=== PATIENT | female | born 1930 | race Caucasian/White ===

== ENCOUNTER 2016-08-19 18:39 | Emergency (ER) | payer OTHER ==
[~2016-08-19] VITALS: Ht 149.9 cm; Wt 56.7 kg
[~2016-08-19 18:39] MED LIST: ASPI81TA2 PO; LISI-600 PO; LOVA20TA2 PO; RABE20TA5 PO; RANI150T8 PO; TOPXL100 PO
[2016-08-19 18:43] VITALS: BP 159/63; PULSE 89; RESP 17; TEMP 98.4; O2SAT 96
[2016-08-19] MEDS ORDERED: NIFE-2 PO (19:41)
[2016-08-19] MEDS ORDERED: MORPHINE 2 MG/ML INJ. SYRINGE IVP ONE ×2 (20:00→21:00)
[2016-08-19 20:14] LABS: BASOPHILS # (AUTO) 0.1 K/uL (0.0-0.2); BASOPHILS % (AUTO) 1.1 % (0.0-2.0); EOSINOPHILS # (AUTO) 0.4 K/uL (0.0-0.4); EOSINOPHILS % (AUTO) 4.7 % (0.0-4.0); HEMATOCRIT 36.4 % (36-48); HEMOGLOBIN 12.4 g/dL (12.0-16.0); LYMPHOCYTES % (AUTO) 24.4 % (20.5-51.5); MEAN CORPUSCULAR HEMOGLOBIN 33 pg (27-31); MEAN CORPUSCULAR HGB CONC 34 % (32-36); MEAN CORPUSCULAR VOLUME 98 fL (79.0-98.0); MONOCYTES % (AUTO) 12.4 % (1.7-9.3); NEUTROPHILS # (AUTO) 4.9 K/uL (1.8-7.7); NEUTROPHILS % (AUTO) 57.4 % (40.0-70.0); PLATELET COUNT (AUTO) 172 K/uL (130-430); RED BLOOD CELL COUNT(AUTO) 3.71 MIL/uL (4.2-6.2); RED CELL DISTRIBUTION WIDTH 12.8 % (9.0-15.0); WHITE BLOOD COUNT (AUTO) 8.4 K/uL (4.8-10.8)
[2016-08-19 20:26] LABS: INR 0.9 (0.8-1.2); PROTHROMBIN TIME 9.9 SECS (9.5-12.5)
[2016-08-19 20:31] LABS: ALANINE AMINOTRANSFERASE 25 U/L (12-78); ALBUMIN 4.2 g/dL (3.4-4.8); ANION GAP 7 (5-15); ASPARTATE AMINOTRANSFERASE 17 U/L (10-37); CALCIUM 9.5 mg/dL (8.4-11.0); CHLORIDE 104 mmol/L (98-107); CREATININE 2.11 mg/dL (0.55-1.30); GLUCOSE 112 mg/dL (70-99); POTASSIUM 4.8 mmol/L (3.5-5.1); SODIUM SERUM 137 mmol/L (136-145); TOTAL BILIRUBIN 0.4 mg/dL (0.0-1.0); TOTAL PROTEIN, SERUM 7.9 g/dL (6.4-8.3); UREA NITROGEN, BLOOD 36 mg/dL (8-21)
[2016-08-19 20:48] LABS: BILIRUBIN,URINE NEGATIVE (NEGATIVE); BLOOD, URINE 3+ (NEGATIVE); CLARITY/URINE HAZY (CLEAR); GLUCOSE,URINE NEGATIVE (NEGATIVE); KETONES,URINE NEGATIVE (NEGATIVE); LEUKOCYTE ESTERASE ,URINE 1+ (NEGATIVE); NITRITE, URINE POSITIVE (NEGATIVE); PROTEIN URINE TRACE (NEGATIVE); UROBILINOGEN,URINE 0.2 (0.2-1.0)
[2016-08-19] MEDS ORDERED: ONDANSETRON HCL 4 MG/2 ML VIAL IVP ONE (21:00)
[2016-08-19 21:06] LABS: BACTERIA,URINE FEW /HPF (None Seen); RBC,URINE >100 /HPF (0-3); WBC,URINE 20-50 /HPF (0-3)
[2016-08-19 21:07] LABS: COLOR,URINE YELLOW (YELLOW); MUCUS,URINE None Seen /LPF (None Seen)
[2016-08-19] MEDS ORDERED: LEVOFLOXACIN 500 MG/D5W 100 ML IV ONE (21:15)
[2016-08-19 22:40] VITALS: BP 158/61; PULSE 92; RESP 17; TEMP 98.4; O2SAT 98
== END 2016-08-19 22:40 | disposition home or self-care (01) ==
LOC: SED 18:39
DX: N39.0 Urinary tract infection, site not specified (principal); R31.9 Hematuria, unspecified; K21.9 Gastro-esophageal reflux disease without esophagitis; I10 Essential (primary) hypertension; Z88.0 Allergy status to penicillin; Z88.5 Allergy status to narcotic agent
CPT/HCPCS: 36415; 80053; 81000; 85025; 85610; 85730; 87086; 96365; 96375; 99284; J1956; J2270; J2405

== ENCOUNTER 2017-03-12 08:22 | Emergency (ER) | payer OTHER ==
[~2017-03-12] VITALS: Ht 149.9 cm; Wt 56.2 kg
[~2017-03-12 08:22] MED LIST changes: -ASPI81TA2 PO; -LOVA20TA2 PO; +NIFE-2 PO; -RABE20TA5 PO
[2017-03-12 08:30] VITALS: BP_SYST 160
[2017-03-12] MEDS ORDERED: ACETAMINOPHEN 500 MG TABLET PO ONE (08:45)
[2017-03-12 09:49] VITALS: BP_SYST 142
== END 2017-03-12 09:49 | disposition home or self-care (01) ==
LOC: SED 08:22
DX: M25.551 Pain in right hip (principal); K21.9 Gastro-esophageal reflux disease without esophagitis; I10 Essential (primary) hypertension; Z88.5 Allergy status to narcotic agent; Z88.0 Allergy status to penicillin; Z88.1 Allergy status to other antibiotic agents; W10.8XXA Fall (on) (from) other stairs and steps, initial encounter; Y93.89 Activity, other specified; Y92.89 Other specified places as the place of occurrence of the external cause; Y99.8 Other external cause status
CPT/HCPCS: 72170-TC; 73502; 99284

== ENCOUNTER 2019-09-02 18:21 | Inpatient (IN) | payer OTHER ==
[~2019-09-02] VITALS: Ht 149.9 cm; Wt 55.8 kg
[2019-09-02 18:29] VITALS: BP_SYST 138
[2019-09-02 19:24] LABS: BASOPHILS % (AUTO) 0.6 % (0.0-2.0); EOSINOPHILS # (AUTO) 0.1 K/uL (0.0-0.4); EOSINOPHILS % (AUTO) 2.4 % (0.0-4.0); HEMATOCRIT 35.1 % (36-48); HEMOGLOBIN 11.8 g/dL (12.0-16.0); LYMPHOCYTES # (AUTO) 1.2 K/uL (1.0-5.5); LYMPHOCYTES % (AUTO) 19.5 % (20.5-51.5); MEAN CORPUSCULAR HEMOGLOBIN 34 pg (27-31); MEAN CORPUSCULAR HGB CONC 34 % (32-36); MEAN CORPUSCULAR VOLUME 102 fL (79.0-98.0); MONOCYTES # (AUTO) 0.6 K/uL (0.0-1.0); MONOCYTES % (AUTO) 9.8 % (1.7-9.3); NEUTROPHILS # (AUTO) 4.3 K/uL (1.8-7.7); NEUTROPHILS % (AUTO) 67.7 % (40.0-70.0); PLATELET COUNT (AUTO) 198 K/uL (130-430); RED BLOOD CELL COUNT(AUTO) 3.46 MIL/uL (4.2-6.2); RED CELL DISTRIBUTION WIDTH 12.8 % (9.0-15.0); WHITE BLOOD COUNT (AUTO) 6.3 K/uL (4.8-10.8)
[2019-09-02 19:29] LABS: ANION GAP 8 (5-15); CALCIUM 8.7 mg/dL (8.4-11.0); CHLORIDE 100 mmol/L (98-107); CREATININE 3.19 mg/dL (0.55-1.30); GLUCOSE 153 mg/dL (70-99); POTASSIUM 4.3 mmol/L (3.5-5.1); SODIUM SERUM 132 mmol/L (136-145); UREA NITROGEN, BLOOD 47 mg/dL (8-21)
[2019-09-02 19:35] LABS: ALANINE AMINOTRANSFERASE 21 U/L (12-78); ALBUMIN 3.8 g/dL (3.4-4.8); ASPARTATE AMINOTRANSFERASE 18 U/L (10-37); TOTAL BILIRUBIN 0.4 mg/dL (0.0-1.0)
[2019-09-02] MEDS ORDERED: NACL 0.9% 1,000 ML IV ONE (20:00)
[2019-09-02] MEDS ORDERED: MORPHINE 4 MG/ML INJ. SYRINGE IVP ONE (21:30)
[2019-09-02] MEDS ORDERED: HYDR25TA4 PO (22:29)
[2019-09-02] MEDS ORDERED: METO-442 PO (22:29)
[2019-09-02] MEDS ORDERED: RANI300T4 PO (22:29)
[2019-09-02] MEDS ORDERED: CELE200C PO (22:29)
[2019-09-02] MEDS ORDERED: TELM80TA2 PO (22:29)
[2019-09-02 23:07] VITALS: BP_SYST 150
[2019-09-03] MEDS ORDERED: TEMAZEPAM 7.5 MG CAPSULE PO ONE (00:45)
[2019-09-03] MEDS ORDERED: ACETAMINOPHEN 325 MG TABLET PO PRN (02:00)
[2019-09-03 03:02] LABS: ALANINE AMINOTRANSFERASE 15 U/L (12-78); ALBUMIN 3.1 g/dL (3.4-4.8); ANION GAP 8 (5-15); ASPARTATE AMINOTRANSFERASE 16 U/L (10-37); CALCIUM 8.1 mg/dL (8.4-11.0); CHLORIDE 105 mmol/L (98-107); CREATININE 2.69 mg/dL (0.55-1.30); GLUCOSE 127 mg/dL (70-99); SODIUM SERUM 137 mmol/L (136-145); THYROID STIMULATING HORMONE 8.21 uIu/mL (0.36-3.74); TOTAL BILIRUBIN 0.4 mg/dL (0.0-1.0); UREA NITROGEN, BLOOD 40 mg/dL (8-21)
[2019-09-03 06:32] LABS: BASOPHILS % (AUTO) 0.6 % (0.0-2.0); EOSINOPHILS # (AUTO) 0.1 K/uL (0.0-0.4); HEMATOCRIT 30.8 % (36-48); HEMOGLOBIN 10.2 g/dL (12.0-16.0); LYMPHOCYTES # (AUTO) 1.3 K/uL (1.0-5.5); LYMPHOCYTES % (AUTO) 20.7 % (20.5-51.5); MEAN CORPUSCULAR HEMOGLOBIN 34 pg (27-31); MEAN CORPUSCULAR HGB CONC 33 % (32-36); MEAN CORPUSCULAR VOLUME 102 fL (79.0-98.0); MONOCYTES # (AUTO) 0.7 K/uL (0.0-1.0); MONOCYTES % (AUTO) 11.2 % (1.7-9.3); NEUTROPHILS % (AUTO) 65.5 % (40.0-70.0); PLATELET COUNT (AUTO) 170 K/uL (130-430); RED BLOOD CELL COUNT(AUTO) 3.03 MIL/uL (4.2-6.2); RED CELL DISTRIBUTION WIDTH 13.1 % (9.0-15.0); WHITE BLOOD COUNT (AUTO) 6.1 K/uL (4.8-10.8)
[2019-09-03] MEDS: NACL 0.9% 1,000 ML IV SCH ×2 (06:32→15:07)
[2019-09-03 08:00] VITALS: BP_SYST 124
[2019-09-03] MEDS ORDERED: METOPROLOL SUCCINATE 50 MG TAB.SR.24H (TOPROL XL) PO ONE (12:15)
[2019-09-03 12:25] VITALS: BP_SYST 130
[2019-09-03] MEDS ORDERED: FAMOTIDINE 20 MG TABLET PO ONE (12:30)
[2019-09-03] MEDS ORDERED: LEVOTHYROXINE SODIUM 0.05 MG TABLET PO ONE (13:30)
[2019-09-03] MEDS ORDERED: NACL 0.9% 1,000 ML IV ONE (15:05)
[2019-09-03 16:20] VITALS: BP_SYST 117
[2019-09-03 20:00] VITALS: BP_SYST 145
[2019-09-03] MEDS: METOPROLOL SUCCINATE 50 MG TAB.SR.24H (TOPROL XL) PO SCH (20:49)
[2019-09-04 00:27] VITALS: BP_SYST 134
[2019-09-04 06:21] LABS: ANION GAP 7 (5-15); CALCIUM 8.5 mg/dL (8.4-11.0); CHLORIDE 108 mmol/L (98-107); CREATININE 2.02 mg/dL (0.55-1.30); GLUCOSE 89 mg/dL (70-99); POTASSIUM 4.7 mmol/L (3.5-5.1); SODIUM SERUM 139 mmol/L (136-145); UREA NITROGEN, BLOOD 30 mg/dL (8-21)
[2019-09-04] MEDS ORDERED: NACL 0.9% 1,000 ML IV ONE (06:45)
[2019-09-04 06:53] LABS: BASOPHILS # (AUTO) 0.1 K/uL (0.0-0.2); EOSINOPHILS # (AUTO) 0.2 K/uL (0.0-0.4); EOSINOPHILS % (AUTO) 4.2 % (0.0-4.0); HEMATOCRIT 30.1 % (36-48); LYMPHOCYTES # (AUTO) 1.5 K/uL (1.0-5.5); LYMPHOCYTES % (AUTO) 27.2 % (20.5-51.5); MEAN CORPUSCULAR HEMOGLOBIN 34 pg (27-31); MEAN CORPUSCULAR HGB CONC 33 % (32-36); MEAN CORPUSCULAR VOLUME 102 fL (79.0-98.0); MONOCYTES # (AUTO) 0.6 K/uL (0.0-1.0); MONOCYTES % (AUTO) 12.1 % (1.7-9.3); NEUTROPHILS % (AUTO) 55.5 % (40.0-70.0); PLATELET COUNT (AUTO) 168 K/uL (130-430); RED BLOOD CELL COUNT(AUTO) 2.94 MIL/uL (4.2-6.2); RED CELL DISTRIBUTION WIDTH 12.9 % (9.0-15.0); WHITE BLOOD COUNT (AUTO) 5.4 K/uL (4.8-10.8)
[2019-09-04] MEDS ORDERED: LEVOTHYROXINE SODIUM 0.05 MG TABLET PO SCH (07:00)
[2019-09-04 08:00] VITALS: BP_SYST 139
[2019-09-04] MEDS ORDERED: FAMOTIDINE 20 MG TABLET PO SCH (09:00)
[2019-09-04] MEDS: METOPROLOL SUCCINATE 50 MG TAB.SR.24H (TOPROL XL) PO SCH (09:02)
[2019-09-04 10:09] VITALS: BP_SYST 139
[2019-09-04] MEDS ORDERED: SYN50 PO (10:42)
[2019-09-04] MEDS ORDERED: METO-542 PO (10:42)
== END 2019-09-04 11:10 | disposition home or self-care (01) | DRG 205 ==
LOC: SED 18:21 → STU 22:17
PROVIDERS: ADMIT Internal Medicine Hospice and Palliative Medicine; ATTEND Internal Medicine Hospice and Palliative Medicine
DX: M94.0 Chondrocostal junction syndrome [Tietze] (principal); N18.6 End stage renal disease; I12.0 Hypertensive chronic kidney disease with stage 5 chronic kidney disease or end stage renal disease; N17.9 Acute kidney failure, unspecified; R00.0 Tachycardia, unspecified; D64.9 Anemia, unspecified; E89.0 Postprocedural hypothyroidism; K21.9 Gastro-esophageal reflux disease without esophagitis; E86.0 Dehydration; Z88.5 Allergy status to narcotic agent; Z88.1 Allergy status to other antibiotic agents; Z88.0 Allergy status to penicillin; Z79.899 Other long term (current) drug therapy
CPT/HCPCS: 36415; 71045; 71250-TC; 80048; 80053; 82550-TC; 83880; 84443-TC; 84484; 85025; 85379; 93005; 93306; 96360; 99285; G0378; J2270; J7030

== ENCOUNTER 2020-03-04 04:36 | Observation (INO) | payer OTHER ==
[~2020-03-04] VITALS: Ht 149.9 cm; Wt 54.4 kg
[2020-03-04] VITALS (10 sets, daily range): BP systolic 94–219
[~2020-03-04 04:36] MED LIST changes: +CELE200C PO; -LISI-600 PO; +METO-542 PO; -NIFE-2 PO; -RANI150T8 PO; +RANI300T4 PO; +SYN50 PO; -TOPXL100 PO
[2020-03-04] MEDS ORDERED: GABA-529 PO (05:07)
[2020-03-04] MEDS ORDERED: HYDR12.55 PO (05:08)
[2020-03-04] MEDS ORDERED: MECL12.584 PO (05:10)
[2020-03-04] MEDS ORDERED: MIRT7.5T11 PO (05:11)
[2020-03-04] MEDS ORDERED: OMEP40CA33 PO (05:11)
[2020-03-04] MEDS ORDERED: SYN50 PO (05:12)
[2020-03-04] MEDS ORDERED: ASPI-1153 PO (05:13)
[2020-03-04] MEDS ORDERED: CYAN100010 PO (05:13)
[2020-03-04] MEDS ORDERED: OMEG-82 PO (05:14)
[2020-03-04] MEDS ORDERED: ENALAPRILAT DIHYDRATE 1.25 MG/ML VIAL IVP ONE (05:15)
[2020-03-04] MEDS ORDERED: hydrALAZINE HCL 20 MG/ML VIAL IVP ONE (05:15)
[2020-03-04 05:36] LABS: BASOPHILS # (AUTO) 0.1 K/uL (0.0-0.2); BASOPHILS % (AUTO) 1.1 % (0.0-2.0); EOSINOPHILS # (AUTO) 0.1 K/uL (0.0-0.4); EOSINOPHILS % (AUTO) 2.5 % (0.0-4.0); HEMATOCRIT 36.2 % (36-48); HEMOGLOBIN 12.2 g/dL (12.0-16.0); LYMPHOCYTES # (AUTO) 1.4 K/uL (1.0-5.5); LYMPHOCYTES % (AUTO) 28.2 % (20.5-51.5); MEAN CORPUSCULAR HEMOGLOBIN 32 pg (27-31); MEAN CORPUSCULAR HGB CONC 34 % (32-36); MEAN CORPUSCULAR VOLUME 96 fL (79.0-98.0); MONOCYTES # (AUTO) 0.5 K/uL (0.0-1.0); MONOCYTES % (AUTO) 9.2 % (1.7-9.3); NEUTROPHILS # (AUTO) 2.9 K/uL (1.8-7.7); PLATELET COUNT (AUTO) 179 K/uL (130-430); RED BLOOD CELL COUNT(AUTO) 3.77 MIL/uL (4.2-6.2); RED CELL DISTRIBUTION WIDTH 13.8 % (9.0-15.0); WHITE BLOOD COUNT (AUTO) 4.9 K/uL (4.8-10.8)
[2020-03-04 05:43] LABS: ANION GAP 7 (5-15); CALCIUM 9.4 mg/dL (8.4-11.0); CHLORIDE 103 mmol/L (98-107); CREATININE 1.78 mg/dL (0.55-1.30); GLUCOSE 114 mg/dL (70-99); POTASSIUM 4.2 mmol/L (3.5-5.1); SODIUM SERUM 136 mmol/L (136-145); UREA NITROGEN, BLOOD 28 mg/dL (8-21)
[2020-03-04 05:49] LABS: ALANINE AMINOTRANSFERASE 15 U/L (12-78); ALBUMIN 3.5 g/dL (3.4-4.8); ASPARTATE AMINOTRANSFERASE 19 U/L (10-37); TOTAL BILIRUBIN 0.5 mg/dL (0.0-1.0)
[2020-03-04] MEDS ORDERED: NITROGLYCERIN 1 INCH (GM) OINT. TP ONE (06:15)
[2020-03-04] MEDS ORDERED: LOSARTAN POTASSIUM 50 MG TABLET (COZAAR) PO ONE (11:15)
[2020-03-04] MEDS: D5/0.45 NS 1,000 ML IV SCH ×3 (11:58→20:35)
[2020-03-04] MEDS ORDERED: ACETAMINOPHEN 325 MG TABLET PO PRN (12:00)
[2020-03-04] MEDS ORDERED: MECLIZINE HCL 25 MG TABLET (ANITVERT) PO PRN (12:00)
[2020-03-04] MEDS ORDERED: ONDANSETRON HCL 4 MG/2 ML VIAL IVP PRN (12:00)
[2020-03-04] MEDS: LORazepam 2 MG/ML VIAL IVP PRN ×2 (14:07→20:50)
[2020-03-04] MEDS: GABAPENTIN 100 MG CAPSULE PO SCH ×2 (14:07→20:33)
[2020-03-04] MEDS ORDERED: ASPIRIN 81 MG TAB.CHEW ONE (14:18)
[2020-03-04] MEDS: OMEGA-3/DHA/EPA/FISH OIL 1 GM CAPSULE PO SCH (20:33)
[2020-03-04] MEDS: METOPROLOL SUCCINATE 50 MG TAB.SR.24H (TOPROL XL) PO SCH (20:34)
[2020-03-04] MEDS ORDERED: MIRTAZAPINE 15 MG TABLET PO SCH (21:00)
[2020-03-04] MEDS ORDERED: NACL 0.9% 250 ML IV SCH (23:15)
[2020-03-05 01:10] VITALS: BP_SYST 113
[2020-03-05 06:01] LABS: BASOPHILS % (AUTO) 0.6 % (0.0-2.0); EOSINOPHILS # (AUTO) 0.2 K/uL (0.0-0.4); HEMATOCRIT 36.6 % (36-48); HEMOGLOBIN 12.2 g/dL (12.0-16.0); LYMPHOCYTES # (AUTO) 1.5 K/uL (1.0-5.5); LYMPHOCYTES % (AUTO) 28.1 % (20.5-51.5); MEAN CORPUSCULAR HEMOGLOBIN 33 pg (27-31); MEAN CORPUSCULAR HGB CONC 33 % (32-36); MEAN CORPUSCULAR VOLUME 98 fL (79.0-98.0); MONOCYTES # (AUTO) 0.7 K/uL (0.0-1.0); MONOCYTES % (AUTO) 12.1 % (1.7-9.3); NEUTROPHILS # (AUTO) 3.1 K/uL (1.8-7.7); NEUTROPHILS % (AUTO) 56.2 % (40.0-70.0); PLATELET COUNT (AUTO) 160 K/uL (130-430); RED BLOOD CELL COUNT(AUTO) 3.74 MIL/uL (4.2-6.2); RED CELL DISTRIBUTION WIDTH 13.7 % (9.0-15.0); WHITE BLOOD COUNT (AUTO) 5.5 K/uL (4.8-10.8)
[2020-03-05] MEDS: D5/0.45 NS 1,000 ML IV SCH ×2 (06:15→15:13)
[2020-03-05 06:16] LABS: ALANINE AMINOTRANSFERASE 11 U/L (12-78); ANION GAP 4 (5-15); ASPARTATE AMINOTRANSFERASE 17 U/L (10-37); CALCIUM 8.6 mg/dL (8.4-11.0); CHLORIDE 106 mmol/L (98-107); CREATININE 1.44 mg/dL (0.55-1.30); GLUCOSE 100 mg/dL (70-99); PHOSPHORUS 3.5 mg/dL (2.7-4.5); POTASSIUM 3.8 mmol/L (3.5-5.1); SODIUM SERUM 136 mmol/L (136-145); TOTAL BILIRUBIN 0.5 mg/dL (0.0-1.0); UREA NITROGEN, BLOOD 24 mg/dL (8-21)
[2020-03-05] MEDS ORDERED: LEVOTHYROXINE SODIUM 0.05 MG TABLET PO SCH (07:00)
[2020-03-05 08:00] VITALS: BP_SYST 148
[2020-03-05] MEDS ORDERED: ASPIRIN 81 MG TABLET(ECOTRIN) PO SCH (09:00)
[2020-03-05] MEDS ORDERED: CYANOCOBALAMIN 1000 mCg TABLET PO SCH (09:00)
[2020-03-05] MEDS ORDERED: HYDROCHLOROTHIAZIDE 12.5 MG CAPSULE (HCTZ) PO SCH (09:00)
[2020-03-05] MEDS ORDERED: PANTOPRAZOLE SODIUM 40 MG TAB PO SCH (09:00)
[2020-03-05] MEDS ORDERED: LOSARTAN POTASSIUM 50 MG TABLET (COZAAR) PO SCH (09:00)
[2020-03-05] MEDS: OMEGA-3/DHA/EPA/FISH OIL 1 GM CAPSULE PO SCH (09:34)
[2020-03-05] MEDS: GABAPENTIN 100 MG CAPSULE PO SCH ×2 (09:36→15:09)
[2020-03-05] MEDS: METOPROLOL SUCCINATE 50 MG TAB.SR.24H (TOPROL XL) PO SCH ×2 (09:36→20:05)
[2020-03-05 12:17] VITALS: BP_SYST 149
[2020-03-05 15:54] LABS: URINE SODIUM, RANDOM 20 mmol/L (40-220)
[2020-03-05 16:40] VITALS: BP_SYST 142
[2020-03-05 19:50] VITALS: BP_SYST 174
[2020-03-05] MEDS ORDERED: amLODIPine BESYLATE 5 MG TABLET PO ONE (20:00)
[2020-03-05] MEDS ORDERED: amLODIPine BESYLATE 5 MG TABLET ONE (20:21)
[2020-03-05 21:20] VITALS: BP_SYST 146
== END 2020-03-05 21:20 ==
LOC: SED 04:36 → INTOOBSV 07:11 → STU 07:11
PROVIDERS: ADMIT Internal Medicine Hospice and Palliative Medicine; ATTEND Internal Medicine Hospice and Palliative Medicine
DX: R07.89 Other chest pain (principal); Z20.828 Contact with and (suspected) exposure to other viral communicable diseases; I10 Essential (primary) hypertension; N17.9 Acute kidney failure, unspecified; K21.9 Gastro-esophageal reflux disease without esophagitis; E78.5 Hyperlipidemia, unspecified; E89.0 Postprocedural hypothyroidism; G47.00 Insomnia, unspecified; R42 Dizziness and giddiness; I12.9 Hypertensive chronic kidney disease with stage 1 through stage 4 chronic kidney disease, or unspecified chronic kidney disease; E11.22 Type 2 diabetes mellitus with diabetic chronic kidney disease; N18.2 Chronic kidney disease, stage 2 (mild); E11.65 Type 2 diabetes mellitus with hyperglycemia; J44.9 Chronic obstructive pulmonary disease, unspecified; R79.89 Other specified abnormal findings of blood chemistry; Z87.42 Personal history of other diseases of the female genital tract; Z90.710 Acquired absence of both cervix and uterus; Z90.49 Acquired absence of other specified parts of digestive tract; Z90.721 Acquired absence of ovaries, unilateral; Z88.1 Allergy status to other antibiotic agents; Z86.73 Personal history of transient ischemic attack (TIA), and cerebral infarction without residual deficits; Z85.43 Personal history of malignant neoplasm of ovary; Z79.899 Other long term (current) drug therapy; Z79.82 Long term (current) use of aspirin; Z79.890 Hormone replacement therapy
CPT/HCPCS: 36415 ×2; 71045; 76770; 80053 ×2; 82570; 83735; 83880; 84100; 84302; 84443; 84484 ×2; 85025 ×2; 85379; 87426; 96361 ×2; 96374; 96375 ×2; 96376; 97112; 97162; 99291; G0378; J0360; J2060; J7050